=== PATIENT | female | born 1995 | race Caucasian/White ===

== ENCOUNTER 2022-04-02 20:31 | Emergency (ER) | payer SELFPAY ==
[2022-04-02] MEDS ORDERED: Ketorolac Tromethamine 30 MG/ML VIAL ONE (22:37)
[2022-04-02] MEDS ORDERED: Acetaminophen 500 MG TAB ONE (22:37)
[2022-04-02 23:23] LABS: Bacteria/HPF None Seen HPF (None Seen); Bilirubin Negative (Negative); Blood, Urine 3+ (Negative); Clarity Turbid (Clear); Glucose, Urine (Dipstick) Normal (Negative); Ketone, Urine Trace mg/dL (Negative); Leukocyte Negative Leu/uL (Negative); Nitrite Negative (Negative); Protein, Urine (Dipstick) 20 mg/dL (Neg-Trace); RBC/HPF Greater than 50 HPF (0-3); Specific Gravity, Urine 1.031 (1.002-1.036); Squamous Epithelial 0-3 HPF (0-3); Urobilinogen Normal mg/dL (Less than 2); pH, Urine 5.5 (5.0-9.0)
[2022-04-02 23:31] LABS: Pregnancy Test - Urine (BHCG) Negative (Negative); Pregu Control Background? CLEAR/WHITE (CLR/WHITE); Pregu Control Bar Appear? YES (CONTROL BAR); Specific Gravity 1.031 (1.002-1.036)
[2022-04-03 00:39] LABS: #Basophils 0.1 thou/uL (0.0-0.2); #Eosinphils 0.3 thou/uL (0.0-0.7); #Lymphocytes 4.1 thou/uL (1.20-3.40); #Monocytes 0.6 thou/uL (0.11-0.59); #Neutrophils 5.3 thou/uL (1.40-6.50); %Basophils 0.5 % (0.0-1.0); %Eosinophils 2.8 % (0.0-10.0); %Monocytes 5.3 % (0.0-10.0); %Neutrophils 51.3 % (42.0-75.0); Hemoglobin 11.7 g/dL (12.0-16.0); Mean Corpuscular HGB CONC 32.9 g/dL (32.0-36.0); Mean Corpuscular Volume 91.2 fl (78.0-98.0); Mean Platelet Volume 6.9 fL (7.4-10.4); Platelet Count 330 thou/uL (130-400); RBC Distribution Width 11.9 % (11.5-14.5); Red Blood Cell (RBC) Count 3.91 mill/uL (4.20-5.40); White Blood Cell (WBC) Count 10.3 thou/uL (4.8-10.8)
[2022-04-03 01:00] LABS: ALT (SGPT) 12 U/L (8-55); AST (SGOT) 14 U/L (5-34); Albumin 3.8 g/dL (3.5-5.0); Alkaline Phosphatase 94 U/L (40-110); Anion Gap 14 mmol/L (10-20); BUN (Urea Nitrogen) 14 mg/dL (7.0-18.7); Bilirubin, Total Less than 0.2 mg/dL (0.2-1.2); Calc. Creatinine Clearance 0 mL/min (70-130); Calcium 9.1 mg/dL (7.8-10.44); Carbon Dioxide 20 mmol/L (22-29); Chloride 109 mmol/L (98-107); Estimated GFR 123; Globulin 2.5 g/dL (2.4-3.5); Glucose 111 mg/dL (70-105); Lipase 24 U/L (8-78); Potassium 3.8 mmol/L (3.5-5.1); Protein, Total 6.3 g/dL (6.0-8.3); Sodium 139 mmol/L (136-145)
[2022-04-03] MEDS ORDERED: Morphine 4 MG/ML VIAL ONE (01:21)
== END 2022-04-03 03:27 | disposition home or self-care (01) ==
LOC: ERS 20:31
DX: N30.00 Acute cystitis without hematuria (principal)
CPT/HCPCS: 74176; 80053; 81003; 81015; 81025; 83690; 85025; 96372; 96374; J1885; J2270

== ENCOUNTER 2022-04-10 14:09 | Emergency (ER) | payer SELFPAY ==
[2022-04-10 14:58] LABS: #Eosinphils 0.4 thou/uL (0.0-0.7); #Monocytes 0.6 thou/uL (0.11-0.59); #Neutrophils 6.3 thou/uL (1.40-6.50); %Basophils 0.4 % (0.0-1.0); %Eosinophils 3.9 % (0.0-10.0); %Monocytes 5.8 % (0.0-10.0); %Neutrophils 60.9 % (42.0-75.0); Hemoglobin 12.4 g/dL (12.0-16.0); Mean Corpuscular HGB CONC 32.4 g/dL (32.0-36.0); Mean Corpuscular Hemoglobin 29.3 pg (27.0-31.0); Mean Corpuscular Volume 90.5 fl (78.0-98.0); Mean Platelet Volume 6.6 fL (7.4-10.4); Platelet Count 353 thou/uL (130-400); RBC Distribution Width 11.8 % (11.5-14.5); Red Blood Cell (RBC) Count 4.25 mill/uL (4.20-5.40); White Blood Cell (WBC) Count 10.4 thou/uL (4.8-10.8)
[2022-04-10 15:27] LABS: ALT (SGPT) 19 U/L (8-55); AST (SGOT) 16 U/L (5-34); Albumin 4.2 g/dL (3.5-5.0); Alkaline Phosphatase 92 U/L (40-110); Anion Gap 11 mmol/L (10-20); BUN (Urea Nitrogen) 15 mg/dL (7.0-18.7); Bilirubin, Total 0.2 mg/dL (0.2-1.2); Calc. Creatinine Clearance 0 mL/min (70-130); Carbon Dioxide 22 mmol/L (22-29); Chloride 109 mmol/L (98-107); Estimated GFR 123; Globulin 2.8 g/dL (2.4-3.5); Glucose 99 mg/dL (70-105); Potassium 3.9 mmol/L (3.5-5.1); Sodium 138 mmol/L (136-145)
[2022-04-10 16:10] LABS: Bacteria/HPF 2+ HPF (None Seen); Bilirubin Negative (Negative); Blood, Urine 3+ (Negative); Glucose, Urine (Dipstick) Normal (Negative); Ketone, Urine Negative (Negative); Leukocyte 75 Leu/uL (Negative); Nitrite Negative (Negative); Protein, Urine (Dipstick) 10 mg/dL (Neg-Trace); RBC/HPF Greater than 50 HPF (0-3); Specific Gravity, Urine 1.015 (1.002-1.036); Squamous Epithelial 0-3 HPF (0-3); Urobilinogen Normal mg/dL (Less than 2); pH, Urine 7.5 (5.0-9.0)
[2022-04-10 16:11] LABS: Clarity Cloudy (Clear); Pregnancy Test - Urine (BHCG) Negative (Negative); Pregu Control Background? CLEAR/WHITE (CLR/WHITE); Pregu Control Bar Appear? YES (CONTROL BAR); Specific Gravity 1.015 (1.002-1.036)
[2022-04-10] MEDS ORDERED: cefTRIAXone\\ROCEPHIN 1 GM VIAL ONE (16:23)
[2022-04-10] MEDS ORDERED: Lidocaine 1% MPF 2 ML VIAL ONE (16:24)
== END 2022-04-10 17:45 | disposition home or self-care (01) ==
LOC: ERS 14:09
DX: N30.00 Acute cystitis without hematuria (principal)
CPT/HCPCS: 36415; 80053; 81003; 81015; 81025; 85025; 96372; 99283; J0696

== ENCOUNTER 2022-04-26 22:11 | Emergency (ER) | payer OTHER, SELFPAY ==
[2022-04-27] MEDS ORDERED: Acetaminophen 500 MG TAB ONE (02:51)
== END 2022-04-27 05:20 ==
LOC: ERS 22:11
DX: S09.90XA Unspecified injury of head, initial encounter (principal); M62.838 Other muscle spasm; W01.190A Fall on same level from slipping, tripping and stumbling with subsequent striking against furniture, initial encounter
CPT/HCPCS: 70450; 72125